=== PATIENT | male | born 1995 | race Caucasian/White ===

== ENCOUNTER 2017-03-17 18:16 | Emergency (ER) | payer OTHER ==
[~2017-03-17] VITALS: Ht 182.9 cm; Wt 69.9 kg
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
--- OUTSIDE RECORDS SUMMARY | 2017-03-17 18:28 | External Medical Summary Rpt ---
Author Author JANNETH Barry, [employer] Organization [employer] Address Unknown Phone Unavailable
--- OUTSIDE RECORDS SUMMARY | 2017-03-17 18:28 | External Medical Summary Rpt ---
Demographics Preferred Language Cameroonian Marital Status Unknown Gnosticism Affiliation Unknown Race Unknown Ethnic Group Unknown Author Author , Organization [employer] Address Unknown Phone Unavailable Purpose Continuity of Care Document - 03-31-2014 through 2016 Immunization Name Date Route CVX Reacti Commen Provid Is Given on t er Refuse d HPV4 Histor [id number] No (Garda 2014 ical donell) Inform ation - Source Unspec ified HPV4 Histor H02200 No (Garda 2013 ical donell) Inform ation - Source Unspec ified MCV4O/ Histor M94282 No MCV4P 2013 ical (MENVE Inform O) ation - Source Unspec ified HPV4 Histor I82336 No (Garda 2013 ical donell) Inform ation - Source Unspec ified
--- OUTSIDE RECORDS SUMMARY | 2017-03-17 18:28 | External Medical Summary Rpt ---
Author Author [employer] Organization [employer] Address Unknown Phone Unavailable Purpose Continuity of Care Document - through 2016
--- OUTSIDE RECORDS SUMMARY | 2017-03-17 18:28 | External Medical Summary Rpt ---
Demographics Preferred Language Israeli Marital Status Unknown Evangelical Affiliation Unknown Race Unknown Ethnic Group Unknown Author Author , Organization [employer] Address Unknown Phone Unavailable Purpose Continuity of Care Document - 03-31-2014 through 2016 Immunization Name Date Route CVX Reacti Commen Provid Is Given on t er Refuse d HPV4 Histor X18419 No (Garda 2014 ical donell) Inform ation - Source Unspec ified HPV4 Histor B77092 No (Garda 2013 ical donell) Inform ation - Source Unspec ified MCV4O/ Histor H67695 No MCV4P 2013 ical (MENVE Inform O) ation - Source Unspec ified HPV4 Histor S48991 No (Garda 2013 ical donell) Inform ation - Source Unspec ified
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
[2017-03-17] MEDS ORDERED: IBUPROFEN800 MG PO (19:03)
[2017-03-17 19:07] VITALS: BP 131/79
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
== END 2017-03-17 19:07 | disposition home or self-care (01) ==
LOC: UTC 18:16
DX: S00.83XA Contusion of other part of head, initial encounter (principal); Y04.2XXA Assault by strike against or bumped into by another person, initial encounter; Y92.9 Unspecified place or not applicable